=== PATIENT | female | born 1970 | race Two or more races ===

== ENCOUNTER 2020-05-31 08:00 | Day surgery (SDC) | payer OTHER | END 2020-05-31 13:45 | disposition home or self-care (01) | LOC: AMB-ENDOS 08:00 | PROVIDERS: ATTEND Surgery | DX: K63.5 Polyp of colon (principal); K64.4 Residual hemorrhoidal skin tags; Z20.828 Contact with and (suspected) exposure to other viral communicable diseases; Z12.11 Encounter for screening for malignant neoplasm of colon ==